=== PATIENT | female | born 1965 | race Caucasian/White ===

== ENCOUNTER 2016-07-12 13:35 | Emergency (ER) | payer OTHER ==
[~2016-07-12 13:35] MED LIST: ALBUTEROL17 GM INH; AMBIEN PO; ANAPROX DS PO; APRESOLINE PO; BENTYL10 MG DOB; DICLOFENAC PO; FLEXERIL PO; KLONOPIN PO; LITHIUM CARBON300 M2 PO; MEDROL PO; NORCO1 TAB 10/3 PO; OMEPRAZOLE20 M2 PO; PAXIL PO; PEPTO-BISM525 MG/15 PO; PERCOCET5/325 PO; PHENERGAN PO; PHENERGAN25 M1 PO; PHENERGAN25 MG PO; PREDNISONE PO; ROBITUSSIN100 MG/51 PO; SEROQUEL PO; SEROQUEL300 M1 PO; SYMBICORT INH; VISTARIL PO; ZITHROMAX PO; ZOFRAN PO; ZOFRANODT PO
== END 2016-07-12 14:07 | disposition home or self-care (01) ==
LOC: SED 13:35
DX: H60.92 Unspecified otitis externa, left ear (principal); F17.200 Nicotine dependence, unspecified, uncomplicated; F41.9 Anxiety disorder, unspecified; J44.9 Chronic obstructive pulmonary disease, unspecified; F31.9 Bipolar disorder, unspecified
CPT/HCPCS: 99283